=== PATIENT | female | born 1990 | race Caucasian/White ===

== ENCOUNTER 2020-04-04 00:12 | Outpatient (CLI) | payer OTHER, SELFPAY ==
[2020-04-04 20:04] LABS: SARS-CoV-2 RNA PCR Negative
== END 2020-04-04 00:13 | disposition home or self-care (01) ==
LOC: ANHCOVIDDT 00:12
PROVIDERS: Anesthesiology; Visit Provider Surgery Plastic and Reconstructive Surgery
DX: Z01.812 Encounter for preprocedural laboratory examination (principal); Z20.828 Contact with and (suspected) exposure to other viral communicable diseases
CPT/HCPCS: 87635; C9803; U0003

== ENCOUNTER 2020-04-06 00:54 | Day surgery (SDC) | payer OTHER, SELFPAY ==
[2020-04-06] VITALS (9 sets, daily range): BP systolic 111–128; BP diastolic 58–78; PULSE 51–78; RESP 12–20; TEMP 36.2–37.1; O2SAT 98–100
--- NOTE | 2020-04-06 06:36 | WPDANESEPPF ---
Anes - Initial Pre Proc Eval Procedure: Operation Date: 04/06/20 07:30 Proposed Procedures p Bilateral Augmentation Mammoplasty - Sergei Keith MD Date/Time: 04/06/20 06:36 Surgeon: Sergei Keith MD Pre Op Diagnosis: Micromastia Patient Data Age: 29 Gender: F Height: 5 ft 6 in Weight: 64.2 kg Last Vital Signs Temp 37.1 C 04/06/20 06:09 Pulse 65 04/06/20 06:09 Resp 14 04/06/20 06:09 BP 114/70 04/06/20 06:09 Pulse Ox 100 04/06/20 06:09 Allergies Allergy/AdvReac Type Severity Reaction Status Date / Time penicillin G Allergy Severe rash Verified 04/06/20 06:21 Home Medications Medication Instructions Recorded Confirmed Type carisoprodol 350 mg tablet 350 mg PO TID 03/22/20 03/23/20 History docusate sodium 100 mg capsule 100 mg PO BID PRN 03/22/20 03/23/20 History ondansetron HCl 4 mg tablet 4 mg PO Q6H PRN #30 tablet 03/22/20 03/23/20 Rx oxycodone-acetaminophen 5 mg-325 1 tablet PO Q6H PRN 03/22/20 03/23/20 History mg tablet [id number] acid-lutein [Adult tablet PO 04/06/20 History Multivitamin (w-lutein)] Patient hx anesthesia problems: none Family hx anesthesia problems: none PMFSH Surgical History Surgical History History of bunionectomy Family History Family History Other Hypertension Social History Social History Smoking status: Never smoker Second hand tobacco smoke exposure: No Alcohol intake: current Substance use: never Substance use type: does not use Living arrangements: alone Gender identity (if verbalized by the patient): Female Spiritual care concerns: No Anes - Eval Final PreProcedure Day of Procedure 04/06/20 06:36 Patient weight: normal Heart: regular rate and rhythm Lungs: clear to auscultation Airway: Mallampati scale class II Neurological: alert and oriented Last oral intake: >/= 8 hours ASA classification: I Emergent: no Anesthetic plan: proceed Anesthesia type and monitoring: general LMA Informed Consent: The patient's anesthetic plan and its attendant risks and benefits were discussed with the patient/family/POA. Questions were solicited and answers provided to the satisfaction of the patient/family/POA.
[2020-04-06] MEDS: LACTATED RINGERS 1,000 ML 30 ML IV CONT ×2 (06:44→08:33)
--- NOTE | 2020-04-06 07:00 | WPDHPUPDATE1 ---
History and Physical Update Update Date/Time: 04/06/20 07:00 History and Physical has been reviewed, including an updated exam of the patient. There are NO changes in the patient's condition. Risks, benefits, and alternatives have been discussed and questions answered. Patient agrees to proceed with procedure.
--- NOTE | 2020-04-06 07:13 | PM.PROC ---
Procedure Note - Detailed Date of procedure: 04/06/20 Pre-op diagnosis: Micromastia Post-op diagnosis: same Procedure performed: Bilateral augmentation mammaplasty Description of procedure: She is here today for bilateral breast augmentation. Previously and again today the risks, benefits, alternatives were discussed in extensive detail. I wanted her to be very realistic about the risks involved as well as expectations. She understands she does have a degree of tissue laxity. If she is not happy with results would proceed with second stage mastopexyat her expense. Discussed dual plane approach. We discussed aftercare and what to monitor for. Made sure answered all of her questions to her satisfaction today and consent was obtained. Marked in the preoperative holding area with their verification. The patient was taken to the operating room placed supine on the operating table. Anesthesia was provided by anesthesiology. A surgical time-out was taken. We cleansed the skin and 1% lidocaine and 0.25% Marcaine with epinephrine was used anesthetize as a field block. She was prepped and draped in a standard sterile fashion. Tegaderm nipple Soares were placed. A 15 blade used to make an incision along the inframammary fold. Dissection was continued at 45 degree angle until the chest wall as identified. I elevated above the muscle bilateral in a dual plane fashion. I incised the pectoralis major along its inferior border and completely released the inferior border leaving the medial border intact. I created a subpectoral pocket in the appropriate dimensions based on our preoperative planning for the implant. I then copiously irrigated with saline solution and verified a strict hemostasis. Next the use a triple antibiotic and Betadine containing solution to irrigate the pocket. I washed my gloves with the triple antibiotic and Betadine solution. We washed the implant immediately upon opening it with this solution and only opened it when we needed it. I used implant funnel and no-touch technique. The implant was introduced into the pocket using the funnel. Having verified positioning of the implant this was closed using 2-0 Vicryl followed by 3-0 Monocryl in a running subcuticular 4-0 Monocryl followed by tissue glue. Fluffs, Joey wrap, and surgical bra were placed. Patient was awoke and taken to PACU without difficulty. All instrument sponge counts were correct at the end of the case. Anesthesia: GLMA Surgeon: Sergei Keith MD Estimated blood loss (mL): 30 Drains: No Packing: No Pathology: none sent Complications: No immediate complications Condition: stable Disposition: PACU Findings: Right: Dual plane 2 Left: Dual plane 3 IMF Approach Bilateral 335cc silicone SoftTouch implants Right REF# [id number] SN [id number] Left REF# [id number] SN [id number]
[2020-04-06] MEDS: CLINDAMYCIN 900 MG/NS 50 ML 900 MG/50 ML PIGGYBACK 50 MG IVPB (07:27)
[2020-04-06] MEDS: LIDO 1%/EPINEPHRINE 1:100,000 20 ML VIAL 80 ML INFILTRATE (07:57)
[2020-04-06] MEDS: fentaNYL CITRATE INJ (*CRX) 100 MCG/2 ML VIAL 25 MCG IV PUSH ×2 (08:57→09:12)
[2020-04-06] MEDS: ONDANSETRON HCL ODT 4 MG TABLET PO (10:24)
== END 2020-04-06 11:00 | disposition home or self-care (01) ==
PROVIDERS: Visit Provider Surgery Plastic and Reconstructive Surgery
PROC: (CPT 19325; principal; 2020-04-06 07:30)
DX: Z41.1 Encounter for cosmetic surgery (principal); N64.82 Hypoplasia of breast
CPT/HCPCS: 19325; A9270; J1100; J1580; J2250; J2405; J2704; J3010; J7120